=== PATIENT | female | born 1970 ===

== ENCOUNTER 2016-11-16 19:25 | Emergency (ER) | payer MEDICARE ==
[2016-11-16 19:43] VITALS: RESP 18; TEMP 98; O2SAT 98; BMI 26.6
--- NOTE | 2016-11-16 20:13 | ED PDOC ---
Arrival/HPI - General Chief Complaint: Trauma Time Seen by Provider: 11/16/16 19:51 Historian: Patient - History of Present Illness Narrative History of Present Illness (Text): 11/16/16 20:07 A 46 year old female, whose past medical history includes 3 herniated discs and reported fibromyalgia, presents to the emergency department complaining of left shoulder injury since earlier today. Patient reports that she tripped on her feet at home and her left shoulder hit the wall. Patient immediately went to [facility] and had X-rays done for her injury. She notes pain radiates to left neck, and also experiences slight back pain and mild headache. Patient denies of any head trauma, leg injury, loss of consciousness, vision changes, fever, abdominal pain, nausea, vomiting, chest pain, shortness of breath, or any other complaints. X-rays were done at the [facility] with radiology reading of left AC separation. She was instructed to follow up with orthopedics but says she was in too much pain, so she came to the ED. Time/Duration: Other (occurred earlier today) Symptom Onset: Sudden Symptom Course: Unchanged Context: Home Past Medical History - Provider Review Nursing Documentation Reviewed: Yes - Musculoskeletal/Rheumatological Hx Musculoskeletal Disorders: Yes Hx Herniated Disk: Yes (X3) - Psychiatric Hx Psychophysiologic Disorder: Yes Hx Anxiety: Yes Hx Depression: Yes Hx Substance Use: No - Surgical History Hx Tubal Ligation: Yes Family/Social History - Physician Review Nursing Documentation Reviewed: Yes Family/Social History: No Known Family HX Smoking Status: Light Smoker < 10 Cigarettes Daily Hx Alcohol Use: Yes Frequency of alcohol use: Socially Hx Substance Use: No Allergies/Home Meds Allergies/Adverse Reactions: Allergies codeine Allergy (Verified 11/16/16 19:52) ANAPHYLAXIS levofloxacin [From Levaquin] Allergy (Verified 11/16/16 19:52) ANAPHYLAXIS pine nut Allergy (Verified 11/16/16 19:52) ANAPHYLAXIS Home Medications: Home Meds Medication Instructions Recorded Confirmed ARIPiprazole [Abilify] mg PO DAILY 11/16/16 Citalopram Hydrobromide [Celexa] mg PO HS 11/16/16 Clonazepam [Klonopin] mg PO HS 11/16/16 Milnacipran HCl [Savella] mg PO BID 11/16/16 Oxycodone HCl [Oxycontin] 20 mg PO BID 11/16/16 11/16/16 Zolpidem [Ambien] 5 mg PO HS 11/16/16 11/16/16 traZODone [Desyrel] 100 mg PO HS 11/16/16 11/16/16 Review of Systems - Physician Review All systems were reviewed & negative as marked: Yes - Review of Systems Constitutional: absent: Fevers, Other (no head trauma) Eyes: absent: Vision Changes Respiratory: absent: SOB Cardiovascular: absent: Chest Pain Gastrointestinal: absent: Abdominal Pain, Nausea, Vomiting Musculoskeletal: Back Pain (slight back pain), Neck Pain (radiating from left shoulder), Other (left shoulder pain) Neurological: Headache (mild; did not hit head or LOC). absent: Other (no LOC) Physical Exam Vital Signs Reviewed: Yes Vital Signs Temp Pulse Resp BP Pulse Ox 11/16/16 19:42 98.0 F 82 18 108/55 L 98 Temperature: Afebrile Blood Pressure: Normal Pulse: Regular Respiratory Rate: Normal Appearance: Positive for: Well-Appearing, Non-Toxic, Comfortable Pain Distress: None Mental Status: Positive for: Alert and Oriented X 3 - Systems Exam Head: Present: Atraumatic, Normocephalic Pupils: Present: PERRL Conjunctiva: Present: Normal Mouth: Present: Moist Mucous Membranes Pharnyx: Present: Normal. No: ERYTHEMA, EXUDATE Neck: Present: Normal Range of Motion, Other (ttp over the left trapezius). No : MIDLINE TENDERNESS Respiratory/Chest: Present: Clear to Auscultation, Good Air Exchange. No: Respiratory Distress, Accessory Muscle Use Cardiovascular: Present: Regular Rate and Rhythm, Normal S1, S2. No: Murmurs Abdomen: Present: Normal Bowel Sounds. No: Tenderness, Distention, Peritoneal Signs Back: No: Midline Tenderness (no midline cervical spinal tenderness) Upper Extremity: Present: Normal Inspection. No: Cyanosis, Edema Lower Extremity: Present: Normal Inspection. No: Edema Neurological: Present: GCS=15, CN II-XII Intact, Speech Normal Skin: Present: Warm, Dry, Normal Color. No: Rashes Psychiatric: Present: Alert, Oriented x 3, Normal Insight, Normal Concentration Medical Decision Making ED Course and Treatment: 11/16/16 20:17 Impression: 46 year old female with left shoulder injury. Physical exam shows no midline cervical spinal tenderness. She already had x-rays done at [facility], of which she brought a disc to view. Plan: -- Reassess and disposition Progress Notes: Patient visited [facility] and had X-Ray done, which I have viewed, has been read by the radiologist. Left Shoulder X-Ray shows widening and malalignment of the a.c. joint. The glenohumeral joint is normal. 11/16/16 20:46 Patient is already in a sling. Will give nsaid and analgesia in the ED. [place] [facility] was reviewed; patient is chronically on oxycontin - last given a script for oxycontin, 60 tablets, on 10/27/16. Case was discussed with orthopedics, Dr. Thacker, who said if no acute swelling is noted, which it is not, that it may represent an old finding. He said to have the patient call the office in the morning to schedule follow up. Given chronic narcotic script, she will not receive a script for any controlled substances. Will d/c on nsaid and muscle relaxant and have her f/u ortho. - Medication Orders Current Medication Orders: Discontinued Medications Ketorolac Tromethamine (Toradol) 60 mg IM STAT STA Stop: 11/16/16 20:21 Oxycodone/Acetaminophen (Percocet 5/325 Mg Tab) 2 tab PO STAT STA Stop: 11/16/16 20:21 - Scribe Statement The provider has reviewed the documentation as recorded by the Rae Tarango Provider Scribe Attestation: All medical record entries made by the Branibmarcelo were at my direction and personally dictated by me. I have reviewed the chart and agree that the record accurately reflects my personal performance of the history, physical exam, medical decision making, and the department course for this patient. I have also personally directed, reviewed, and agree with the discharge instructions and disposition. Disposition/Present on Arrival - Present on Arrival Any Indicators Present on Arrival: No History of DVT/PE: No History of Uncontrolled Diabetes: No Urinary Catheter: No History of Decub. Ulcer: No History Surgical Site Infection Following: None - Disposition Have Diagnosis and Disposition been Completed?: Yes Diagnosis: Separation of left acromioclavicular joint Disposition: HOME/ ROUTINE Disposition Time: 20:45 Patient Plan: Discharge Condition: GOOD Additional Instructions: Maintain shoulder in sling. Take the naprosyn and baclofen as prescribed. You may continue your oxycontin at home as needed. Follow up with Dr. Thacker, orthopedics. Return to the emergency department if any new concerning symptoms. Prescriptions: Baclofen [Lioresal] 1 cap PO TID PRN #20 tab PRN Reason: Pain, Moderate (4-7) Naproxen [Naprosyn] 500 mg PO BID PRN #30 tab PRN Reason: Pain Referrals: Bogdan Thacker III, MD [Medical Doctor] - Follow up with primary Forms: [employer] ([place]ian)
[2016-11-16] MEDS ORDERED: Oxycodone/Acetaminophen 5/325 mg Tab PO STA (20:20)
[2016-11-16 21:17] VITALS: BP 110/58; PULSE 79
== END 2016-11-16 21:17 | disposition home or self-care (01) ==
LOC: ED 19:25
DX: S43.102A Unspecified dislocation of left acromioclavicular joint, initial encounter (principal); W01.198A Fall on same level from slipping, tripping and stumbling with subsequent striking against other object, initial encounter; Y93.89 Activity, other specified; Y92.008 Other place in unspecified non-institutional (private) residence as the place of occurrence of the external cause
CPT/HCPCS: 96372; 99284; J1885